=== PATIENT | male | born 1965 | race Hispanic/Latino ===

== ENCOUNTER 2021-11-17 08:55 | Emergency (ER) | payer OTHER ==
--- OUTSIDE RECORDS SUMMARY | 2021-11-17 08:58 | XMS REPORT | Continuity of Care Document ---
:[address] [facility] t Address [address] [place] [address] Care Team Providers Name Role Phone Junior Salazar DO Attending Clinician Doctor Unassigned, [place] Attending Clinician Unavailable 1, Lab Attending Clinician Unavailable Christopher YOUNG, Rajeev Attending Clinician Rajeev WHITE Attending Clinician Unavailable Payers Payer Name Policy Type Policy Number Effective Date Expiration Date S lydia LAMASR FROM [id number] 2019 FORMERLY NAMED [facility] 00:00:00 Problems Condition Condition Condition Status Onset Resolution Last Treating Co mments Source Name Details Category Date Date Treatment Clinician Date Rectal Rectal Disease Active 2017-11 Overview: Univer s bleeding bleeding 11-06 Formattin ity of 00:00: g of this [place] 00 note Medical might be Branch different from the original. Added automatic ally from request for surgery [id number] Fecal Fecal Disease Active 2017-11 [facility]-06 Formattin ity of blood test blood test 00:00: g of this [place] positive positive 00 note Medica l might be Branch different from the original. Added automatic ally from request for surgery [id number] Gastroesop Gastroesop Disease Active 2017-11 Overview : Univers hageal hageal 11-06 Formattin ity of reflux reflux 00:00: g of this [place] disease, disease, 00 note Medica l esophagiti esophagiti might be Branch s presence s presence different not not from the specified specified original. Added automatic ally from request for surgery [id number] Abdominal Abdominal Disease Active 2017-11 Overview: Univers pain, pain, 11-06 Formattin ity of epigastric epigastric 00:00: g of this [place] 00 note Medical might be Branch different from the original. Added automatic ally from request for surgery [id number] Allergies, Adverse Reactions, Alerts Allergy Allergy Status Severity Reaction(s) Onset Inactive Treating Comm ents Source Name Type Date Date Clinician NO KNOWN Drug Active Univers ALLERGIE Class ity of S [place] [facility] [place] Social History Social Habit Start Date Stop Date Quantity Comments Source Exposure to Unable to assess Univers ity of SARS-CoV-2 [place] [facility] (event) Branch Tobacco use and 2018-11-26 2018-11-26 Never used Universit y of exposure 00:00:00 00:00:00 [facility] Sex Ass[birth year] At [birth year] Universit y of 00:00:00 00:00:00 [facility] Smoking Status Start Date Stop Date Source Never smoker [facility] Medications Ordered Filled Start Stop Current Ordering Indication Dosage Frequency Signature Comments Components Source Medication Medication Date Date Medication? Clinician (SIG) Name Name naproxen Yes [id number] 550mg Take 1 Un nallely sodium 6-27 tablet by ity of (ANAPROX 00:00: mouth 2 [place] DS) 550 mg 00 (two) Medical tablet times Branch daily with meals. clindamycin 2020- No [id number] 300mg Take 2 Univers 150 mg 6-27 07-05 capsules ity of capsule 00:00: 04:59 by mouth 4 [place] as 00 :00 (four) Medical times Branch daily for 7 days. gemfibrozil Yes 600mg Take 600 U nivers 600 mg 1-19 mg by ity of tablet 00:29: mouth 2 [place] [address] (two) Medical times Branch daily before breakfast and dinner. glipiZIDE Yes 10mg Take 10 mg Un nallely XL 10 mg 24 1-19 by mouth. ity of hr tablet 00:29: [place] [address] Medical Branch Levothyroxi 2018- Yes Take by Un nallely ne 25 mcg 1-19 mouth. ity of capsule 00:29: [place] [address] Medical Branch lisinopril 2018- Yes 2.5mg Take 2.5 Un nallely 2.5 mg 1-19 mg by ity of tablet 00:29: mouth [place] [address] daily. Medical Branch metFORMIN 2018- Yes 1000mg Take 1,000 Univers 1,000 mg 24 1-19 mg by ity of hr tablet 00:29: mouth 2 [place] [address] (two) Medical times Branch daily with meals. pravastatin 2018- Yes 40mg Take 40 mg Univers 40 mg 1-19 by mouth ity of tablet 00:29: at [place] [address] bedtime. Medical Branch pyridoxine, 2019-0 Yes 50mg Take 50 mg Univers vitamin B6, 1-19 by mouth ity of 50 mg 00:29: daily. [place] tablet 08 Medical Branch thiamine 2019-0 Yes 100mg Take 100 Univ ers 100 mg 1-19 mg by ity of tablet 00:29: mouth [place] 08 daily. Medical Branch gemfibrozil 2019-0 Yes 600mg Take 600 U nivers 600 mg 1-19 mg by ity of tablet 00:29: mouth 2 [place] [address] (two) Medical times Branch daily before breakfast and dinner. glipiZIDE 2019-0 Yes 10mg Take 10 mg Un nallely XL 10 mg 24 1-19 by mouth. ity of hr tablet 00:29: [place] [address] Medical Branch Levothyroxi 2018-0 Yes Take by Un nallely ne 25 mcg 1-19 mouth. ity of capsule 00:29: [place] [address] Medical Branch lisinopril 2019-0 Yes 2.5mg Take 2.5 Un nallely 2.5 mg 1-19 mg by ity of tablet 00:29: mouth [place] [address] daily. Medical Branch metFORMIN 2019-0 Yes 1000mg Take 1,000 Univers 1,000 mg 24 1-19 mg by ity of hr tablet 00:29: mouth 2 [place] [address] (two) Medical times [place] daily with meals. pravastatin 2019-0 Yes 40mg Take 40 mg Univers 40 mg 1-19 by mouth ity of tablet 00:29: at [place] [address] bedtime. Medical Branch pyridoxine, 2019-0 Yes 50mg Take 50 mg Univers vitamin B6, 1-19 by mouth ity of 50 mg 00:29: daily. [place] tablet 08 Medical Branch thiamine 2019-0 Yes 100mg Take 100 Univ ers 100 mg 1-19 mg by ity of tablet 00:29: mouth [place] [address] daily. Medical Branch gemfibrozil 2019-0 Yes 600mg Take 600 U nivers 600 mg 1-19 mg by ity of tablet 00:29: mouth 2 [place] [address] (two) Medical times Branch daily before breakfast and dinner. glipiZIDE 2019-0 Yes 10mg Take 10 mg Un nallely XL 10 mg 24 1-19 by mouth. ity of hr tablet 00:29: [place] [address] Medical Branch Levothyroxi 2019-0 Yes Take by Un nallely ne 25 mcg 1-19 mouth. ity of capsule 00:29: 08 Medical Branch lisinopril 2019-0 Yes 2.5mg Take 2.5 Un nallely 2.5 mg 1-19 mg by ity of tablet 00:29: mouth [place] 08 daily. Medical Branch metFORMIN 2019-0 Yes 1000mg Take 1,000 Univers 1,000 mg 24 1-19 mg by ity of hr tablet 00:29: mouth 2 [place] [address] (two) Medical times Branch daily with meals. pravastatin 2019-0 Yes 40mg Take 40 mg Univers 40 mg 1-19 by mouth ity of tablet 00:29: at [place] [address] bedtime. Medical Branch pyridoxine, 2019-0 Yes 50mg Take 50 mg Univers vitamin B6, 1-19 by mouth ity of 50 mg 00:29: daily. [place] [address] Medical Branch thiamine 2019-0 Yes 100mg Take 100 Univ ers 100 mg 1-19 mg by ity of tablet 00:29: mouth [place] 08 daily. Medical Branch gemfibrozil 2019-0 Yes 600mg Take 600 U nivers 600 mg 1-19 mg by ity of tablet 00:29: mouth 2 [place] [address] (two) Medical times [place] daily before breakfast and dinner. glipiZIDE 2019-0 Yes 10mg Take 10 mg Un nallely XL 10 mg 24 1-19 by mouth. ity of hr tablet 00:29: 08 Medical Branch Levothyroxi 2019-0 Yes Take by Un nallely ne 25 mcg 1-19 mouth. ity of capsule 00:29: Medical Branch lisinopril 2019-0 Yes 2.5mg Take 2.5 Un nallely 2.5 mg 1-19 mg by ity of tablet 00:29: mouth [place] 08 daily. Medical Branch metFORMIN 2019-0 Yes 1000mg Take 1,000 Univers 1,000 mg 24 1-19 mg by ity of hr tablet 00:29: mouth 2 [place] [address] (two) Medical times [place] daily with meals. pravastatin 2019-0 Yes 40mg Take 40 mg Univers 40 mg 1-19 by mouth ity of tablet 00:29: at [place] [address] bedtime. Medical Branch pyridoxine, 2019-0 Yes 50mg Take 50 mg Univers vitamin B6, 1-19 by mouth ity of 50 mg 00:29: daily. [place] tablet 08 Medical Branch thiamine 2019-0 Yes 100mg Take 100 [facility] ers 100 mg 1-19 mg by ity of tablet 00:29: mouth [place] [address] daily. Medical [place] Vital Signs Vital Name Observation Time Observation Value Comments Source Systolic blood 2021-05-01 17:05:00 119 mm[Hg] Univer sity of pressure [facility] Diastolic blood 2021-05-01 17:05:00 69 mm[Hg] Unive rsity of pressure [facility] Heart rate 2021-05-01 17:05:00 69 /min [facility] Body temperature 2021-05-01 17:05:00 37 Faith [facility] Respiratory rate 2021-05-01 17:05:00 18 /min [facility] Body weight 2021-05-01 17:05:00 86.183 kg Universi [facility] BMI 2021-05-01 17:05:00 31.62 kg/m2 [facility] Oxygen saturation in 2021-05-01 17:05:00 97 /min [facility] Arterial blood by [facility] Pulse oximetry Branch Procedures Procedure Date / Time Performed Performing Clinician [facility] e NOTICE OF PRIVACY 2021-05-01 16:53:50 Doctor Unassigned, No [facility] PRACTICES Name Medical Branch CONSENT/REFUSAL FOR 2021-05-01 16:53:16 Doctor Unassigned, No [facility] DIAGNOSIS AND Name Medical Branch TREATMENT ASSIGNMENT OF BENEFITS 2020-05-07 18:44:36 Doctor Unassigned, No [facility] Medical Branch Encounters Start End Encounter Admission Attending Care Care Encounter Source Date/Time Date/Time Type Type Clinicians Facility Department ID 2021-09-05 Emergency [facility] [id number] Univers 04:08:01 ity of [facility] 2021-05-01 2021-05-01 Emergency Singer NYWALESKA [id number] Univers 12:17:00 13:47:00 Junior Reeves [id number] i ty yaima Owusu [id number] [facility] [id number] [facility] 084 Branch 2021-05-01 2021-05-01 Orders Doctor PRATT [id number] Univers 00:00:00 00:00:00 Only Unassigned, TADEO [id number] ity of [facility] [id number] [place] [id number] [facility] 009 Branch 2020-05-07 2020-05-07 Freight Separator 1, Adc Lab [facility] [id number] Univers 13:47:07 14:02:07 Visit Ariel White [id number] ity of [place] [id number] [place] [facility] [id number] [facility] 353 Branch 2020-05-07 2020-05-07 Outpatient R [facility] [id number] Univers 14:00:00 14:00:00 [id number] ity [facility] 2020-05-07 2020-05-07 Outpatient R CHRISTOPHER [facility] [id number] Univers 14:00:00 14:00:00 [facility] 2020-05-07 Orders Doctor SANTA [id number] Univers 00:00:00 00:00:00 Only Unassigned, TADEO [id number] ity of [place] [facility] [id number] [place] [id number] [place] [address] Branch Results This patient has no known results.
[2021-11-17 10:24] LABS: Absolute Lymphocytes (CBC) 1.8 K/uL (0.7-4.9); Lymphocytes % 25.8 % (15.3-44.8); MPV 7.8 fL (7.6-11.3); RBC Red Blood Cell Count 4.84 M/uL (4.33-5.43)
[2021-11-17 10:25] LABS: Protime INR 0.86
--- NOTE | 2021-11-17 10:27 | RAD REPORT ---
EXAM DESCRIPTION: RAD - Chest Single View - 11/17/2021 10:21 am CLINICAL HISTORY: CHEST PAIN Chest pain. COMPARISON: No comparisons FINDINGS: Portable technique limits examination quality. Mildly prominent interstitial lung markings suggests an underlying viral infection. The heart is norm al in size. No displaced fractures.
[2021-11-17 12:04] LABS: SARS-COV-2 RT PCR POSITIVE (NEGATIVE)
[2021-11-17 13:01] LABS: BUN Blood Urea Nitrogen 9 mg/dL (7-18); Bicarbonate 27 mmol/L (21-32); Glucose Level 212 mg/dL (74-106); Potassium 3.9 mmol/L (3.5-5.1); Sodium Level 139 mmol/L (136-145)
[2021-11-17 15:19] LABS: Urine Blood 3+ (Negative); Urine Glucose Negative (Negative); Urine Protein 2+ (Negative); Urine Specific Gravity >=1.030 (1.005-1.030)
[2021-11-17 17:10] LABS: ALT/SGPT 39 U/L (12-78); AST/SGOT 17 U/L (15-37); Albumin 3.3 g/dL (3.4-5.0); Alkaline Phosphatase 126 U/L (45-117); Bilirubin Total 0.4 mg/dL (0.2-1.0); NT PRO-BNP 50 pg/mL (<125); Protein, Total 7.1 g/dL (6.4-8.2)
[2021-11-17 17:21] LABS: Bilirubin Direct < 0.1 mg/dL (0-0.2)
--- NOTE | 2021-11-17 17:22 | EDPHYS ---
Physician Documentation [facility] Name: Daniel Lauren Age: 56 yrs Sex: Male : 1965 Arrival Date: 11/17/2021 Time: 08:56 Bed 5 Private MD: ED Physician Ruby Oh HPI: 11/17 09:31 This 56 yrs old Male presents to ER via Ambulatory with complaints of Chest jmm Pain. 09:31 The patient or guardian reports chest pain that is located primarily in the substernal [facility] area. Onset: gradually, 2 day(s) ago. The pain does not radiate. Associated signs and symptoms: Pertinent positives: cough, Pertinent negatives: abdominal pain, headache, lower extremity swelling, shortness of breath. Duration: The patient or guardian reports multiple episodes, that wax and wane. Modifying factors: The symptoms are alleviated by nothing. the symptoms are aggravated by nothing. The patient has experienced similar episodes in the past, several times. Historical: - Allergies: 09:10 No Known Allergies; jh5 - PMHx: 09:10 Hyperthyroidism; Hypercholesterolemia; Hypertensive disorder; Diabetes mellitus; [facility] - Immunization history:: Adult Immunizations up to date. - Social history:: Smoking status: Patient reports the use of cigarette tobacco products, smokes one-half pack cigarettes per day, Patient uses alcohol, occasionally. ROS: 09:31 Cardiovascular: Positive for chest pain. jmm 09:31 Cardiovascular: Positive for 09:31 Respiratory: Positive for cough. 09:31 All other systems are negative. Exam: 09:31 Constitutional: This is a well developed, well nourished patient who is awake, alert, jmm and in no acute distress. Head/Face: atraumatic. Eyes: EOMI, no conjunctival erythema appreciated ENT: Moist Mucus Membranes Neck: Trachea midline, Supple Chest/axilla: Normal chest wall appearance and motion. Cardiovascular: Regular rate and rhythm. No edema appreciated Respiratory: Normal respirations, no respiratory distress appreciated Abdomen/GI: Non distended, soft Back: Normal ROM Skin: General appearance color normal MS/ Extremity: Moves all extremities, no obvious deformities appreciated, no edema noted to the lower extremities Neuro: Awake and alert, normal gait Psych: Behavior is normal, Mood is normal, Patient is cooperative and pleasant Vital Signs: 09:05 BP 137 / 73; Pulse 65; Resp 18; Temp 98.7; Pulse Ox 100% ; Weight 79.83 kg; Height 5 5 ft. 4 in. (162.56 cm); Pain 8/10; 10:39 BP 111 / 87; Pulse 64; Resp 16; Pulse Ox 95% ; jl7 11:37 BP 113 / 82; Pulse 57; Resp 15; Pulse Ox 97% on R/A; jl7 12:38 BP 125 / 78; Pulse 56; Resp 14; Pulse Ox 98% on R/A; ld1 14:50 BP 119 / 99; Pulse 60; Resp 18; Pulse Ox 97% on R/A; ld1 15:55 BP 115 / 80; Pulse 70; Resp 19; Pulse Ox 96% on R/A; ld1 09:05 Body Mass Index 30.21 (79.83 kg, 162.56 cm) [facility] MDM: 09:31 Patient medically screened. jameson 17:17 Data reviewed: vital signs, nurses notes. Counseling: I had a detailed discussion with jameson the patient and/or guardian regarding: the historical points, exam findings, and any diagnostic results supporting the discharge/admit diagnosis, lab results, radiology results, the need for outpatient follow up, to return to the emergency department if symptoms worsen or persist or if there are any questions or concerns that arise at home. ED course: Patient would prefer to follow up out patient with cardiology. Advised to follow up with pcp and otherwise give strict return precautions. Patient understood and agrees with the plan of care. . 11/17 09:32 Order name: Basic Metabolic Panel; Complete Time: 17:22 [facility] 11/17 09:32 Order name: CBC with Diff; Complete Time: 10:28 [facility] 11/17 09:32 Order name: LFT's; Complete Time: 17:22 [facility] 11/17 09:32 Order name: Magnesium; Complete Time: 17:22 [facility] 11/17 09:32 Order name: NT PRO-BNP; Complete Time: 17:22 [facility] 11/17 09:32 Order name: PT-INR; Complete Time: 10:28 [facility] 11/17 09:32 Order name: Troponin HS; Complete Time: 17:22 [facility] 11/17 09:32 Order name: XRAY Chest (1 view); Complete Time: 10:28 [facility] 11/17 09:32 Order name: EKG; Complete Time: 09:33 [facility] 11/17 09:32 Order name: Cardiac monitoring; Complete Time: 09:41 [facility] 11/17 09:32 Order name: EKG - Nurse/Tech; Complete Time: 09:41 [facility] 11/17 09:32 Order name: IV Saline Lock; Complete Time: 09:41 [facility] 11/17 09:58 Order name: COVID-19/FLU A+B (Document "Date of Onset" if Symptomatic); Complete Time: [facility] 12:05 11/17 15:19 Order name: Urine Dipstick-Ancillary [facility] 11/17 09:32 Order name: Labs collected and sent; Complete Time: 09:41 [facility] 11/17 09:32 Order name: O2 Per Protocol; Complete Time: 09:41 [facility] 11/17 09:32 Order name: O2 Sat Monitoring; Complete Time: 09:41 [facility] 11/17 10:07 Order name: Labs - recollect needed: recollect all the blood/; Complete Time: 10:42 eb Administered Medications: No medications were administered Disposition Summary: 11/17/21 17:21 Discharge Ordered Location: Home [facility] Condition: Stable [facility] Diagnosis - Chest pain, unspecified jmm - Coronavirus infection, unspecified jmm Followup: [facility] - With: Damon Smith MD - When: 2 - 3 days - Reason: Recheck today's complaints, Continuance of care, Re-evaluation by your physician Discharge Instructions: - Discharge Summary Sheet jmm - Nonspecific Chest Pain, Adult jmm - COVID-19 [facility] Forms: - Medication Reconciliation Form [facility] - Thank You Letter [facility] - Work release form jmm - Antibiotic Education jmm - Prescription Opioid Use [facility] Signatures: Dispatcher [employer] EDMS Mata Mcdonald PA PA jmm Rayne Vasquez Jessica RN RN 5 Corrections: (The following items were deleted from the chart) :11 09:10 PMHx: Hyperthyroidism; 5 5
--- NOTE | 2021-11-17 17:22 | ER ---
Nurse's Notes [facility] Name: Daniel Lauren Age: 56 yrs Sex: Male : 1965 Arrival Date: 11/17/2021 Time: 08:56 Bed 5 Private MD: Diagnosis: Chest pain, unspecified;Coronavirus infection, unspecified Presentation: 11/17 09:05 Chief complaint: Patient states: left sided chest pain; sharp in description that has jh5 progressively gotten worse since yesterday. Coronavirus screen: Vaccine status: Patient reports being unvaccinated. Client denies travel out of the [place] in the last 14 days. At this time, the client does not indicate any symptoms associated with coronavirus-19. Ebola Screen: Patient negative for fever greater than or equal to 101.5 degrees Fahrenheit, and additional compatible Ebola Virus Disease symptoms Patient denies exposure to infectious person. Patient denies travel to an Ebola-affected area in the 21 days before illness onset. Initial Sepsis Screen: Does the patient meet any 2 criteria? No. Patient's initial sepsis screen is negative. Does the patient have a suspected source of infection? No. Patient's initial sepsis screen is negative. Risk Assessment: Do you want to hurt yourself or someone else? Patient reports no desire to harm self or others. Onset of symptoms was October 2021. 09:05 Method Of Arrival: Ambulatory [facility] 09:05 Acuity: ROSHAN 3 jh5 Triage Assessment: 09:11 General: Appears in no apparent distress. uncomfortable, well groomed, well developed, jh5 well nourished, Behavior is calm, cooperative, appropriate for age. Pain: Complains of pain in chest. Cardiovascular: Reports chest pain, shortness of breath. Historical: - Allergies: 09:10 No Known Allergies; jh5 - PMHx: 09:10 Hyperthyroidism; Hypercholesterolemia; Hypertensive disorder; Diabetes mellitus; 5 - Immunization history:: Adult Immunizations up to date. - Social history:: Smoking status: Patient reports the use of cigarette tobacco products, smokes one-half pack cigarettes per day, Patient uses alcohol, occasionally. Screenin:00 Abuse screen: Denies threats or abuse. Denies injuries from another. Nutritional jl7 screening: No deficits noted. Tuberculosis screening: No symptoms or risk factors identified. Fall Risk IV access (20 points). Total Ambrose Fall Scale indicates No Risk (0-24 pts). Assessment: 10:00 General: Appears in no apparent distress. uncomfortable, Behavior is calm, cooperative, jl7 appropriate for age. Pain: Complains of pain in mid-sternal area Pain radiates to anterior aspect of left upper chest Pain currently is 8 out of 10 on a pain scale. Quality of pain is described as sharp, Pain began "8 months ago but it's worse over the past 2 days" Is intermittent. Neuro: Level of Consciousness is awake, alert, obeys commands, Oriented to person, place, time, situation. Cardiovascular: Heart tones present Patient's skin is warm and dry. Rhythm is regular. Respiratory: Airway is patent Respiratory effort is even, unlabored, Respiratory pattern is regular, symmetrical, Breath sounds are clear bilaterally. Derm: Skin is pink, warm \\T\\ dry. 15:55 Reassessment: Patient appears in no apparent distress at this time. No changes from 1 previously documented assessment. Patient and/or family updated on plan of care and expected duration. Pain level reassessed. Patient is alert, oriented x 3, equal unlabored respirations, skin warm/dry/pink. Vital Signs: 09:05 BP 137 / 73; Pulse 65; Resp 18; Temp 98.7; Pulse Ox 100% ; Weight 79.83 kg; Height 5 5 ft. 4 in. (162.56 cm); Pain 8/10; 10:39 BP 111 / 87; Pulse 64; Resp 16; Pulse Ox 95% ; jl7 11:37 BP 113 / 82; Pulse 57; Resp 15; Pulse Ox 97% on R/A; jl7 12:38 BP 125 / 78; Pulse 56; Resp 14; Pulse Ox 98% on R/A; ld1 14:50 BP 119 / 99; Pulse 60; Resp 18; Pulse Ox 97% on R/A; ld1 15:55 BP 115 / 80; Pulse 70; Resp 19; Pulse Ox 96% on R/A; ld1 09:05 Body Mass Index 30.21 (79.83 kg, 162.56 cm) [facility] ED Course: 08:56 Patient arrived in ED. am2 09:10 Triage completed. [facility] 09:12 Arm band placed on left wrist. [facility] 09:27 Mata Mcdonald PA is PHCP. [facility] 09:27 Ruby Oh MD is Attending Physician. jm 09:30 Patient has correct armband on for positive identification. Placed in gown. Bed in low jl7 position. Call light in reach. Side rails up X 1. groundwater monitoring technician on. Pulse ox on. NIBP on. 09:41 Nathaly Acevedo RN is Primary Nurse. jl7 09:41 EKG done, by ED staff, reviewed by Mata HUNTER. jl7 09:45 Initial lab(s) drawn, by ED staff, sent to lab. Patient maintains SpO2 saturation jl7 greater than 95% on room air. 10:15 Lab(s) recollected, by ED staff, sent to lab. jl7 10:21 XRAY Chest (1 view) In Process Unspecified. EDMS 11:38 Awaiting lab results, Awaiting: garage door technician reports instrument issues, unsure of jl7 downtime. 17:21 Damon Smith MD is Referral Physician. [facility] 17:28 No provider procedures requiring assistance completed. IV discontinued, intact, ld1 bleeding controlled, No redness/swelling at site. Administered Medications: No medications were administered Outcome: 17:21 Discharge ordered by MD. [facility] 17:28 Discharged to home ambulatory. ld1 17:28 Condition: stable 17:28 Discharge instructions given to patient, Instructed on discharge instructions, follow up and referral plans. Demonstrated understanding of instructions, follow-up care. 17:28 Patient left the ED. ld1 Signatures: Dispatcher [employer] EDVT Mata Mcdonald PA PA [facility] Nathaly Acevedo, MARIA ELENA RN jl7 Lesly Riojas am2 Lorrie Jones RN RN ld1 Rissa Sandy RN RN jh5 Corrections: (The following items were deleted from the chart) 09:11 09:10 PMHx: Hyperthyroidism; jh5 5
[2021-11-17 17:45] VITALS: TEMP 98.7
[2021-11-17 17:53] VITALS: BP 115/80; O2SAT 96
== END 2021-11-17 17:28 | disposition home or self-care (01) ==
LOC: ER 08:55
DX: U07.1 COVID-19 (principal); R07.9 Chest pain, unspecified; I10 Essential (primary) hypertension; E11.9 Type 2 diabetes mellitus without complications; F17.210 Nicotine dependence, cigarettes, uncomplicated
CPT/HCPCS: 93005; 85025; 80048; 36415; 83735; 85610; 80076; 81003; 84484; 83880; 0240U; 71045; 99285